=== PATIENT | male | born 1945 | race Caucasian/White ===

== ENCOUNTER 2023-05-31 19:51 | Observation (INO) | payer MEDICARE, OTHER ==
[2023-05-31] MEDS ORDERED: SODIUM CHLORIDE 0.9% 500 ML 500 ML IV ONE (20:40)
--- NOTE | 2023-05-31 20:49 | ED ---
General Adult HPI - General Chief complaint: Neuro Symptoms/Deficit Stated complaint: Poss Stroke Time Seen by Provider: 05/31/23 20:34 Source: patient, RN notes reviewed, old records reviewed Mode of arrival: ambulatory Limitations: no limitations - History of Present Illness Initial comments: 78-year-old male presents for evaluation of dizziness, confusion. Patient has previous history of CVA which had similar symptoms several years ago. Patient s tates that around 4 PM he developed dizziness and confusion lasting approximately one hour. He was in [place] at the time and had drove to the [facility] for care. He lives in [facility]. Paramedics had evaluated him in [place] where he was when the symptoms began and he was noted to be hyp ertensive. He states he is not typically hypertensive. He denies any complaints time my evaluation also symptoms have resolved. He is on 81 mg aspirin. - Related Data Home Medications Medication Instructions Recorded Confirmed Aspirin EC [Ecotrin Low Dose] 81 mg PO DAILY 05/31/23 05/31/23 Lutein 20 mg PO DAILY 05/31/23 05/31/23 Metoprolol Succinate [Toprol XL] 50 mg PO DAILY 05/31/23 05/31/23 Mv-Min/Folic/K1/Lycopen/Lutein 1 tab PO DAILY 05/31/23 05/31/23 [Centrum Silver Men Tablet] Pantoprazole [Protonix] 40 mg PO AC-BRKFST 05/31/23 05/31/23 Pyridoxine [Vitamin B-6] 25 mg PO DAILY 05/31/23 05/31/23 Rosuvastatin Calcium 5 mg PO HS 05/31/23 05/31/23 Ubidecarenone [Coenzyme Q10] 200 mg PO DAILY 05/31/23 05/31/23 Allergies Allergy/AdvReac Type Severity Reaction Status Date / Time No Known Allergies Allergy Verified 05/31/23 21:13 Review of Systems ROS Statement: Those systems with pertinent positive or pertinent negative responses have been documented in the HPI. ROS Other: All systems not noted in ROS Statement are negative. Past Medical History Past Medical History: CVA/TIA, Hypertension History of Any Multi-Drug Resistant Organisms: None Reported Past Surgical History: Heart Catheterization With Stent, Orthopedic Surgery Past Psychological History: No Psychological Hx Reported Smoking Status: Former smoker Past Alcohol Use History: Rare General Exam Limitations: no limitations General appearance: alert, in no apparent distress Head exam: Present: atraumatic, normocephalic Eye exam: Present: normal appearance, PERRL ENT exam: Present: normal exam Neck exam: Present: normal inspection. Absent: tenderness, meningismus Respiratory exam: Present: normal lung sounds bilaterally. Absent: respiratory distress, wheezes Cardiovascular Exam: Present: regular rate, normal rhythm GI/Abdominal exam: Present: soft. Absent: distended, tenderness, guarding Extremities exam: Present: normal inspection, normal capillary refill Neurological exam: Present: alert, oriented X3, CN II-XII intact. Absent: motor sensory deficit (NIH of 0, no limb ataxia, strength 5 out of 5 throughout) Psychiatric exam: Present: normal affect, normal mood Skin exam: Present: warm, dry, intact Course Vital Signs 05/31/23 19:54 Temperature 97.5 F L Pulse Rate 67 Respiratory 18 Rate Blood Pressure 165/90 O2 Sat by Pulse 99 Oximetry Medical Decision Making - Medical Decision Making Was pt. sent in by a medical professional or institution (, PA, JIGGER OPERATOR, urgent care, hospital, or prison...) When possible be specific @ -No Did you speak to anyone other than the patient for history (EMS, parent, family, police, friend...)? What history was obtained from this source @ -No Did you review nursing and triage notes (agree or disagree)? Why? @ -I reviewed and agree with nursing and triage notes Were old charts reviewed (outside hosp., previous admission, EMS record, old EK G, old radiological studies, urgent care reports/EKG's, prison records)? Report findings @ -No old charts were reviewed Differential Diagnosis (chest pain, altered mental status, abdominal pain women, abdominal pain men, vaginal bleeding, weakness, fever, dyspnea, syncope, headache, dizziness, GI bleed, back pain, seizure, CVA, palpatations, mental health, musculoskeletal)? @ Differential CVA Ischemic stroke, hemorrhagic stroke, brain tumor, atypical migraine, Wernicke's encephalopathy, seizure, multiple sclerosis, meningitis, encephalitis, hypoglycemia, Guillain-Mendenhall, electrolytes disturbance, myasthenia gravis.... This is not meant to be an all-inclusive list EKG interpreted by me (3pts min.). @ -Sinus rhythm rate of 62, WA interval 192, QRS duration 89, QTC [address] segment elevation, T-wave inversion in lead 3 X-rays interpreted by me (1pt min.). @ -None done CT interpreted by me (1pt min.). @ -CT brain negative for intracranial hemorrhage, showing prior encephalomalacia from his previous CVA U/S interpreted by me (1pt. min.). @ -None done What testing was considered but not performed or refused? (CT, X-rays, U/S, labs)? Why? @ -None What meds were considered but not given or refused? Why? @ -None Did you discuss the management of the patient with other professionals (professionals i.e. DrMaurisio, PA, JIGGER OPERATOR, lab, RT, psych nurse, social science teacher, sexual assault social worker, teacher, community services officer, manager rn case)? Give summary @ -No Was smoking cessation discussed for >3mins.? @ -No Was critical care preformed (if so, how long)? @ -No Were there social determinants of health that impacted care today? How? (Homelessness, low income, unemployed, alcoholism, drug addiction, transportation, low edu. Level, literacy, decrease access to med. care, halfway, rehab)? @ Dr Silver Was there de-escalation of care discussed even if they declined (Discuss DNR or withdrawal of care, Hospice)? DNR status @ -No What co-morbidities impacted this encounter? (DM, HTN, Smoking, COPD, CAD, Cancer, CVA, ARF, Chemo, Hep., AIDS, mental health diagnosis, sleep apnea, morbid obesity)? @ -[CVA Was patient admitted / discharged? Hospital course, mention meds given and route, prescriptions, significant lab abnormalities, going to OR and other pertinent info. @ -70-year-old male presenting for evaluation of an episode of confusion, dizziness, similar to prior CVA. Symptoms resolved prior to arrival they lasted approximately 60 minutes and began at 4 PM. Patient not a TPA candidate due to results symptoms and onset. Patient remains asymptomatic on emergency department. He is given a full-strength aspirin after head CT is negative for intracranial hemorrhage. He will be admitted for TIA, further evaluation with neurology consultation. Undiagnosed new problem with uncertain prognosis? @ -No Drug Therapy requiring intensive monitoring for toxicity (Heparin, Nitro, Insulin, Cardizem)? @ -No Were any procedures done? @ -No Diagnosis/symptom? @ -[TIA Acute, or Chronic, or Acute on Chronic? @ -[acute Uncomplicated (without systemic symptoms) or Complicated (systemic symptoms)? @ -default Side effects of treatment? @ -No Exacerbation, Progression, or Severe Exacerbation? @ -No Poses a threat to life or bodily function? How? (Chest pain, [place], [place], pneumonia, PE, COPD, DKA, ARF, appy, cholecystitis, CVA, Diverticulitis, Homicidal, Suicidal, threat to staff... and all critical care pts) @ -[yes, cva - Lab Data Result diagrams: 05/31/23 21:19 05/31/23 21:19 Lab Results 05/31/23 05/31/23 05/31/23 Range/Units 21:19 21: 21: WBC 6.6 (3.8-10.6) k/uL RBC 4.04 L (4.30-5.90) m/uL Hgb 12.8 L (13.0-17.5) gm/dL Hct 38.1 L (39.0-53.0) % MCV 94.4 (80.0-100.0) fL MCH 31.7 (25.0-35.0) pg MCHC 33.6 (31.0-37.0) g/dL RDW 12.4 (11.5-15.5) % Plt Count 219 (150-450) k/uL MPV 8.5 Neutrophils % 74 % Lymphocytes % 16 % Monocytes % 5 % Eosinophils % 3 % Basophils % 0 % Neutrophils # 4.9 (1.3-7.7) k/uL Lymphocytes # 1.1 (1.0-4.8) k/uL Monocytes # 0.4 (0-1.0) k/uL Eosinophils # 0.2 (0-0.7) k/uL Basophils # 0.0 (0-0.2) k/uL PT 10.6 (10.0-12.5) sec INR 1.0 (<1.2) APTT 26.1 (22.0-30.0) sec Sodium 137 (137-145) mmol/L Potassium 3.9 (3.5-5.1) mmol/L Chloride 103 (98-107) mmol/L Carbon Dioxide 25 (22-30) mmol/L Anion Gap 9 mmol/L BUN 22 H (9-20) mg/dL Creatinine 1.17 (0.66-1.25) mg/dL Est GFR (CKD-EPI)AfAm 69 (>60 ml/min/1.73 sqM) Est GFR (CKD-EPI)NonAf 59 (>60 ml/min/1.73 sqM) Glucose 80 (74-99) mg/dL Calcium 9.6 (8.4-10.2) mg/dL Total Bilirubin 0.6 (0.2-1.3) mg/dL AST 45 (17-59) U/L ALT 33 (4-49) U/L Alkaline Phosphatase 62 (38-126) U/L Creatine Kinase 231 H (55-170) U/L Troponin I (0.000-0.034) ng/mL Total Protein 7.4 (6.3-8.2) g/dL Albumin 4.6 (3.5-5.0) g/dL 05/31/23 Range/Units 21:19 WBC (3.8-10.6) k/uL RBC (4.30-5.90) m/uL Hgb (13.0-17.5) gm/dL Hct (39.0-53.0) % MCV (80.0-100.0) fL MCH (25.0-35.0) pg MCHC (31.0-37.0) g/dL RDW (11.5-15.5) % Plt Count (150-450) k/uL MPV Neutrophils % % Lymphocytes % % Monocytes % % Eosinophils % % Basophils % % Neutrophils # (1.3-7.7) k/uL Lymphocytes # (1.0-4.8) k/uL Monocytes # (0-1.0) k/uL Eosinophils # (0-0.7) k/uL Basophils # (0-0.2) k/uL PT (10.0-12.5) sec INR (<1.2) APTT (22.0-30.0) sec Sodium (137-145) mmol/L Potassium (3.5-5.1) mmol/L Chloride (98-107) mmol/L Carbon Dioxide (22-30) mmol/L Anion Gap mmol/L BUN (9-20) mg/dL Creatinine (0.66-1.25) mg/dL Est GFR (CKD-EPI)AfAm (>60 ml/min/1.73 sqM) Est GFR (CKD-EPI)NonAf (>60 ml/min/1.73 sqM) Glucose (74-99) mg/dL Calcium (8.4-10.2) mg/dL Total Bilirubin (0.2-1.3) mg/dL AST (17-59) U/L ALT (4-49) U/L Alkaline Phosphatase (38-126) U/L Creatine Kinase (55-170) U/L Troponin I <0.012 (0.000-0.034) ng/mL Total Protein (6.3-8.2) g/dL Albumin (3.5-5.0) g/dL Disposition Clinical Impression: Transient cerebral ischemia Disposition: ADMITTED IP TO THIS HOSP Condition: Stable Is patient prescribed a controlled substance at d/c from ED?: No Referrals: Nonstaff,Physician [Primary Care Provider] - 1-2 days Time of Disposition: 22:19
--- NOTE | 2023-05-31 21:26 | CT ---
EXAMINATION TYPE: CT brain wo con DATE OF EXAM: 05/31/2023 HISTORY: weakness CT DLP: 1163.9 mGycm. Automated Exposure Control for Dose Reduction was Utilized. TECHNIQUE: CT scan of the head is performed without contrast. COMPARISON: None. FINDINGS: There is no acute intracranial hemorrhage or midline shift. There is focal encephalomalacia in the left parietal occipital position consistent with remote infarction. There is no definite acut e attenuation defect. There is no extra-axial fluid collection. The globes are intact. The paranasal sinuses, middle ear cavities, and mastoid sinus air cells are cl ear. The calvarium is unremarkable IMPRESSION: No acute process.
[2023-05-31 21:40] LABS: Basophils % (A) 0 %; Eosinophils # (A) 0.2 k/uL (0-0.7); Eosinophils % (A) 3 %; HCT 38.1 % (39.0-53.0); HGB 12.8 gm/dL (13.0-17.5); Lymphocytes # (A) 1.1 k/uL (1.0-4.8); Lymphocytes % (A) 16 %; MCH 31.7 pg (25.0-35.0); MCHC 33.6 g/dL (31.0-37.0); MCV 94.4 fL (80.0-100.0); Mean Platelet Volume 8.5; Monocytes # (A) 0.4 k/uL (0-1.0); Monocytes % (A) 5 %; Neutrophils # (A) 4.9 k/uL (1.3-7.7); Neutrophils % (A) 74 %; Platelet Count 219 k/uL (150-450); RBC 4.04 m/uL (4.30-5.90); RDW 12.4 % (11.5-15.5); WBC 6.6 k/uL (3.8-10.6)
[2023-05-31] MEDS ORDERED: ASPIRIN 325 MG TAB PO STA (21:50)
[2023-05-31 21:54] LABS: ALT 33 U/L (4-49); AST 45 U/L (17-59); African American GFR (CKD) 69 (>60 ml/min/1.73 sqM); Albumin 4.6 g/dL (3.5-5.0); Alkaline Phosphatase 62 U/L (38-126); Anion Gap 9 mmol/L; Blood Urea Nitrogen 22 mg/dL (9-20); Calcium 9.6 mg/dL (8.4-10.2); Carbon Dioxide 25 mmol/L (22-30); Chloride 103 mmol/L (98-107); Creatine Kinase 231 U/L (55-170); Glucose 80 mg/dL (74-99); Non-African American GFR(CKD) 59 (>60 ml/min/1.73 sqM); Potassium 3.9 mmol/L (3.5-5.1); Sodium 137 mmol/L (137-145); Total Bilirubin 0.6 mg/dL (0.2-1.3); Total Protein 7.4 g/dL (6.3-8.2)
[2023-05-31 21:56] LABS: Partial Thromboplastin Time 26.1 sec (22.0-30.0); Prothrombin Time 10.6 sec (10.0-12.5)
[2023-05-31] MEDS: SODIUM CHLORIDE 0.9% 1,000 ML IV SCH (22:27)
[2023-06-01] MEDS ORDERED: ATORVASTATIN 80 MG TAB PO STA (03:43)
--- NOTE | 2023-06-01 03:44 | P.HPIM ---
History of Present Illness H&P Date: 06/01/23 Patient is a 78-year-old male with a PMH of CVA with no residual deficits and hyperlipidemia who presented to the emergency room with complaints of dizziness and aphasia. Reports he was at his usual state of health at home until about 4 PM earlier today when he suddenly developed lightheadedness and word finding difficulty. He was unable to formulate a sentence as per his and couldn't stand up due to ongoing lightheadedness. Denied weakness, numbness, visual impairments, facial asymmetry, headaches, or loss of consciousness. Symptoms lasted roughly 45 minutes. Upon EMS arrival, the patient no longer had his symptoms but was noted to have an elevated blood pressure of 190s systolic, which is very unusual for him as per the . He reports feeling at his baseline at the time of interview and had no active complaints. CT brain in the emergency room was unremarkable. EKG revealed sinus rhythm at [address]/T-wave changes as reviewed by me. Laboratory evaluation was remarkable for hemoglobin 12.8, troponin less than 0.012, BUN 22, creatinine 1.17. ED documentation reviewed and case discussed with ED provider. Review of systems: Pertinent positives and negatives as discussed in HPI, a complete review of systems was performed and all other systems are negative. Physical examination: Vital signs reviewed General: non toxic, no distress, appears at stated age, overweight Derm: no unusual rashes/lesions, warm Head: atraumatic, normocephalic, symmetric Eyes: EOMI, no lid lag, anicteric sclera, pupils equal round reactive to light ENT: Nose and ears atraumatic Neck: No cervical lymphadenopathy, trachea midline, supple Mouth: no lip lesion, mucus membranes moist Cardiovascular: S1S2 reg, no murmur, positive dorsalis pedis pulse bilateral, no edema Lungs: CTA bilateral, no rhonchi, no rales, no accessory muscle use Abdominal: soft, nontender to palpation, no guarding Ext: muscle strength 5 out of 5 in all 4 extremities grossly, no gross muscle atrophy, no contractures, Neuro: CN II-XI grossly intact, no gross focal neuro deficits Psych: Alert, oriented, appropriate affect Assessment: Aphasia and lightheadedness, suspected TIA Chronic conditions: Hyperlipidemia Imaging: CT brain in the emergency room was unremarkable. EKG revealed sinus rhythm at [address]/T-wave changes as reviewed by me. Data Review: Laboratory evaluation was remarkable for hemoglobin 12.8, troponin less than 0.012, BUN 22, creatinine 1.17. Plan: Cardiac monitoring Neurology consult Echocardiogram Continue with aspirin, statin PT and speech consult Brain MRI Continuing home meds Permissive hypertension DVT prophylaxis: Lovenox Subq The patient is admitted with an anticipated less than 2 midnight stay for evaluation of TIA CODE STATUS: Full Code Discussed with: Patient Anticipated discharge place: Home Past Medical History Past Medical History: CVA/TIA, Hypertension History of Any Multi-Drug Resistant Organisms: None Reported Past Surgical History: Heart Catheterization With Stent, Orthopedic Surgery Past Psychological History: No Psychological Hx Reported Smoking Status: Former smoker Past Alcohol Use History: Rare Medications and Allergies Home Medications Medication Instructions Recorded Confirmed Type Aspirin EC [Ecotrin Low Dose] 81 mg PO DAILY 05/31/23 05/31/23 History Lutein 20 mg PO DAILY 05/31/23 05/31/23 History Metoprolol Succinate [Toprol XL] 50 mg PO DAILY 05/31/23 05/31/23 History Mv-Min/Folic/K1/Lycopen/Lutein 1 tab PO DAILY 05/31/23 05/31/23 History [Centrum Silver Men Tablet] Pantoprazole [Protonix] 40 mg PO AC-BRKFST 05/31/23 05/31/23 History Pyridoxine [Vitamin B-6] 25 mg PO DAILY 05/31/23 05/31/23 History Rosuvastatin Calcium 5 mg PO HS 05/31/23 05/31/23 History Ubidecarenone [Coenzyme Q10] 200 mg PO DAILY 05/31/23 05/31/23 History Allergies Allergy/AdvReac Type Severity Reaction Status Date / Time No Known Allergies Allergy Verified 05/31/23 21:13 Physical Exam Vitals: Vital Signs Temp Pulse Pulse Resp BP BP Pulse Ox 06/01/23 02:00 66 12 06/01/23 00:00 97.8 F 66 12 174/95 98 05/31/23 22:09 64 18 161/94 99 05/31/23 21:39 68 18 166/91 99 05/31/23 21:24 64 18 167/97 97 05/31/23 21:09 63 18 161/111 99 05/31/23 20:39 60 18 187/101 99 05/31/23 19:54 97.5 F L 67 18 165/90 99 Intake and Output 05/31/23 05/31/23 06/01/23 14:59 22:59 06:59 Other: Voiding Method Urinal Weight 81.647 kg Results CBC & Chem 7: 05/31/23 21:19 05/31/23 21:19 Labs: Abnormal Lab Results - Last 24 Hours (Table) 05/31/23 05/31/23 Range/Units 21:19 21:19 RBC 4.04 L (4.30-5.90) m/uL Hgb 12.8 L (13.0-17.5) gm/dL Hct 38.1 L (39.0-53.0) % BUN 22 H (9-20) mg/dL Creatine Kinase 231 H (55-170) U/L
[2023-06-01] MEDS: ENOXAPARIN 40 MG/0.4 ML SYRINGE SQ SCH (08:39)
[2023-06-01] MEDS: PANTOPRAZOLE 40 MG TABLET PO SCH (08:39)
[2023-06-01] MEDS: METOPROLOL SUCCINATE (ER) 50 MG TAB.ER.24H PO SCH (08:39)
[2023-06-01] MEDS: SODIUM CHLORIDE 0.9% 1,000 ML IV SCH ×3 (08:39→23:56)
[2023-06-01 08:59] LABS: Chol/HDL Ratio 2.62 Ratio; LDL Cholesterol,Calculated 75.9 mg/dL (0.0-131.0)
[2023-06-01] MEDS ORDERED: ASPIRIN 325 MG TAB PO SCH (09:00)
--- NOTE | 2023-06-01 12:36 | CA ---
Transthoracic Echo Report Name: Niko Rojas Age: 78 Gender: M : 1945 Exam Date: 06/01/2023 09:54 Exam Location: [facility] Ht (in): 68 Wt (lb): 180 Ordering Physician: Griffin Silver MD Attending/Referring Phys: Track Watchman Kareen Rae [facility] Procedure CPT: Indications: CVA Cardiac Hx: Technical Quality: Fair Contrast 1: Total Dose (mL): Contrast 2: Total Dose (mL): MEASUREMENTS (Male / Female) Normal Values 2D ECHO LV Diastolic Diameter PLAX 4.2 cm 4.2 - 5.9 / 3.9 - 5.3 cm LV Systolic Diameter PLAX 2.8 cm IVS Diastolic Thickness 1.1 cm 0.6 - 1.0 / 0.6 - 0.9 cm LVPW Diastolic Thickness 1.1 cm 0.6 - 1.0 / 0.6 - 0.9 cm LV Relative Wall Thickness 0.5 LVOT Diameter 2.0 cm Ascending Aorta Diameter 3.4 cm M-MODE Aortic Root Diameter MM 2.8 cm LA Systolic Diameter MM 3.9 cm LA Ao Ratio MM 1.4 AV Cusp Separation MM 1.7 cm DOPPLER AV Peak Velocity 129.7 cm/s AV Peak Gradient 6.7 mmHg AV Mean Velocity 103.1 cm/s AV Mean Gradient 4.5 mmHg AV Velocity Time Integral 31.9 cm AI Peak Velocity 427.4 cm/s AI Peak Gradient 73.1 mmHg AI Pressure Half Time 802.8 ms LVOT Peak Velocity 139.9 cm/s LVOT Peak Gradient 7.8 mmHg LVOT Velocity Time Integral 31.5 cm LVOT Stroke Volume 101.8 cm??? LVOT Stroke Volume Index 52.1 ml/m??? LVOT Cardiac Index 3469.7 cm???/min???m??? AV Area Cont Eq vti 3.2 cm??? AV Area Cont Eq pk 3.5 cm??? Mitral E Point Velocity 68.3 cm/s Mitral A Point Velocity 85.6 cm/s Mitral E to A Ratio 0.8 MV Deceleration Time 226.9 ms LV E' Lateral Velocity 8.4 cm/s Mitral E to LV E' Lateral Ratio 8.1 LV E' Septal Velocity 7.2 cm/s Mitral E to LV E' Septal Ratio 9.5 TR Peak Velocity 233.4 cm/s TR Peak Gradient 21.8 mmHg Right Atrial Pressure 3.0 mmHg Pulmonary Artery Systolic Pressu 24.8 mmHg Right Ventricular Systolic Press 24.8 mmHg FINDINGS Left Ventricle Mildly increased left ventricular wall thickness. Left ventricular cavity size normal. Normal left ventricular systolic function with no obvious regional wall motion abnormalities. Left ventricular ejection fraction is estimated at 60- 65%. Right Ventricle Normal right ventricular size. Right Atrium Normal right atrial size. Left Atrium Normal left atrial size. Mitral Valve Structurally normal mitral valve. Mild mitral regurgitation. Aortic Valve Trileaflet aortic valve. mild aortic regurgitation. Tricuspid Valve Structurally normal tricuspid valve. Mild tricuspid regurgitation. Pulmonic Valve Pulmonic valve not well visualized. Pericardium No pericardial effusion. Aorta Normal size aortic root and proximal ascending aorta. CONCLUSIONS 1. Normal left ventricle size and systolic function 2. Mild mitral, aortic and tricuspid regurgitation with no evidence of pulmonary hypertension Previewed by: Dr. Zack Palm MD (Electronically Signed) Final Date: 01 June 2023 12:35
--- NOTE | 2023-06-01 13:26 | P.CNNES ---
History of Present Illness Consult date: 06/01/23 Requesting physician: Ian Garsia Reason for Consult: tia History of Present Illness: This is a 78-year-old gentleman with history of stroke in 2019, hypertension, hypercholesterolemia who presented emergency department because of dizziness and confusion. Patient is accompanied with his . His symptoms transpired at 4 PM yesterday and lasted about 45 minutes. Vision stated that the he had some difficulty getting his words out and he knew what he wanted to say. Per the and he seemed somewhat confused. He felt that he was in a fog and he was dizzy. He denies any focal weakness, visual disturbance, any nausea any vomiting. He did have a stroke in 2019 which affected the vision over both bilateral right side. Patient is taking aspirin 81 mg daily. He has a loop recorder on. He denies of any A. fib that he is aware of. Denies any history of seizures. Some of the workup during his hospital visit consisted of: Patient is afebrile. Sodium, calcium, creatinine and glucose are within normal limits Ammonia is less than 9 White blood cell is within normal limits. He Lipid panel is triglycerides 118, cholesterol is 161, LDL 75 and HDL is 61. CT of the head is reported as no acute process. I personally reviewed the CT of the head and the patient has an old left occipital stroke 2D echo was reported as normal left ventricular size and systolic function. Mild monitor aortic and tricuspid regurgitation with no evidence of pulmonary hypertension. Review of Systems Review of system: The 12 point system was reviewed and apparent positive and n egative per HPI. Past Medical History Past Medical History: CVA/TIA, Hypertension Additional Past Medical History / Comment(s): CVA/TIA residual memory loss, partial vision loss, and garbled speach Last Myocardial Infarction Date:: N/A History of Any Multi-Drug Resistant Organisms: None Reported Past Surgical History: Heart Catheterization With Stent, Orthopedic Surgery Past Anesthesia/Blood Transfusion Reactions: No Reported Reaction Date of Last Stent Placement:: N/A Past Psychological History: No Psychological Hx Reported Smoking Status: Former smoker Past Alcohol Use History: Rare Medications and Allergies Home Medications Medication Instructions Recorded Confirmed Type Aspirin EC [Ecotrin Low Dose] 81 mg PO DAILY 05/31/23 05/31/23 History Lutein 20 mg PO DAILY 05/31/23 05/31/23 History Metoprolol Succinate [Toprol XL] 50 mg PO DAILY 05/31/23 05/31/23 History Mv-Min/Folic/K1/Lycopen/Lutein 1 tab PO DAILY 05/31/23 05/31/23 History [Centrum Silver Men Tablet] Pantoprazole [Protonix] 40 mg PO AC-BRKFST 05/31/23 05/31/23 History Pyridoxine [Vitamin B-6] 25 mg PO DAILY 05/31/23 05/31/23 History Rosuvastatin Calcium 5 mg PO HS 05/31/23 05/31/23 History Ubidecarenone [Coenzyme Q10] 200 mg PO DAILY 05/31/23 05/31/23 History Allergies Allergy/AdvReac Type Severity Reaction Status Date / Time No Known Allergies Allergy Verified 05/31/23 21:13 Physical Examination - Vital Signs Vital Signs: Vital Signs Temp Pulse Pulse Resp BP BP Pulse Ox 06/01/23 08:00 64 15 06/01/23 06:39 98.4 F 64 15 136/95 99 06/01/23 02:00 98.6 F 60 15 142/84 94 L 06/01/23 00:00 97.8 F 66 12 174/95 98 05/31/23 22:09 64 18 161/94 99 05/31/23 21:39 68 18 166/91 99 05/31/23 21:24 64 18 167/97 97 05/31/23 21:09 63 18 161/111 99 05/31/23 20:39 60 18 187/101 99 05/31/23 19:54 97.5 F L 67 18 165/90 99 Intake and Output 05/31/23 06/01/23 06/01/23 22:59 06:59 14:59 Intake Total 700 118 Output Total 300 Balance 400 118 Intake: IV 700 Sodium Chloride 0.9% 1, 700 000 ml @ 100 mls/hr IV . Q10H [facility] Rx#:[id number] Oral 118 Output: Urine 300 Other: Voiding Method Urinal Toilet Urinal # Voids 1 Weight 81.647 kg 81.647 kg GENERAL: The patient is lying in bed and is not in acute distress. NEUROLOGICAL: Higher mental function: The patient is awake, alert, oriented to self, place and time. Patient is following commands. No aphasia and no neglect. Cranial nerves: The pupils are round, equal and reactive to light and accommodation. Visual osorio are right homonymous hemianposia. Extraocular movement is intact no nystagmus is noted. Facial sensation is normal to touch throughout. The facial strength is normal throughout. Hearing is normal bilaterally to hand rub. Tongue is midline and moved [id number] without any difficulty. No dysarthria is noted. Shoulder shrug is normal bilaterally. Motor: Gait is normal. The strength is 5 over 5 throughout. Normal tone and bulk. Cerebellum: Normal finger to nose bilaterally. Sensation: Sensation is normal to touch throughout. Reflexes (right/left): 2+ throughout. Plantars are downgoing bilaterally. Results - Laboratory Findings CBC and BMP: 05/31/23 21:19 05/31/23 21:19 Abnormal Lab Findings: Abnormal Labs 05/31/23 05/31/23 05/31/23 21:19 21:19 21:19 RBC 4.04 L Hgb 12.8 L Hct 38.1 L BUN 22 H Creatine Kinase 231 H HDL Cholesterol 61.50 H Assessment and Plan Assessment: This is a 78-year-old gentleman with history of stroke in 2019 over [facility] with residual right homonymous hemianopsia who presents to the hospital because of episode of dizziness and confusion and some speech difficulty on 05/31/2023 which lasted about 45 minutes and the episode happened around 4 PM. Currently the patient is back to baseline. Transient Episode of confusion, dizziness with some speech difficulty possible TIA. Cannot rule out possible seizure especially with hx of stroke which can be focus for seizure. History of left occipital stroke in 2019 with residual right homonymous hemianopsia Loop recorder Plan: MR the brain is ordered by the ED team In addition I ordered MRA of the head and neck appeared I also ordered routine EEG. I ordered TSH, vitamin B12, folate Patient home dose of aspirin was increased from 81-325 daily by the ED team. And the patient was started by the primary team on Lipitor 80 mg Recommend interrogation of his loop recorder Continue neuro checks Cardiac monitoring PT OT and DOUBLE CORNER CUTTER are consulted We'll defer the rest of the medical management to primary team The plan was discussed with the patient, his was at bedside as nurse Thank you for the consultation Time with Patient: Greater than 30
--- NOTE | 2023-06-01 17:56 | P.PN ---
Subjective Progress Note Date: 06/01/23 Hospital course: Patient is a very pleasant 78-year-old male with a past medical history of CVA with no residual deficits, hypertension, hyperlipidemia, and CAD with stent. He presented to the emergency department overnight with complaints of dizziness and aphasia with last known normal on 05/31/23 around 4 PM.. Patient underwent full evaluation in the emergency department. Upon arrival vital signs as follows blood pressure 165/90, heart rate 67, respiratory rate 18, temp 97.5F, SpO2 of 99% on room air. EKG completed showing normal sinus rhythm at 62 bpm with T- wave inversion in inferior lead 3 otherwise no further T-wave or ST abnormalities showing no signs of acute ischemia upon personal review and interpretation. CT brain completed which was negative for acute intercranial process. Labs completed and reviewed. CBC showing normocytic anemia with hemoglobin stable at 12.8. Coagulation profile normal findings. BMP revealing mild prerenal azotemia with BUN of 22 otherwise normal findings. Blood glucose was 80. Creatinine kinase was elevated at 231. Troponin negative at less than 0.012. TSH normal findings at 1.020. Patient admitted under the services with consultation to neurology. Physical exam: Vital signs reviewed and stable. General: Nontoxic, no distress and appears stated age. Derm: Skin warm and dry, normal coloration for ethnicity. Head: Atraumatic, normocephalic and symmetric. Eyes: EOMs intact, no lid lag, and anicteric sclera Mouth: no lip lesions, mucus membranes moist Cardiovascular: regular rate and rhythm with normal S1S2, no murmur, positive posterior tibial pulses bilaterally, and cap refill < 2 seconds. Lungs: Respirations even, regular, and unlabored on room air. Lungs CTA bilaterally, no rhonchi, no rales, no wheezing, and no accessory muscle usage. Abdominal: soft, nontender to palpation, no guarding, no appreciable organomegaly Ext: ROM intact. No gross muscle atrophy, no edema, no contractures Neuro: Speech clear, face symmetrical and CN II-XII grossly intact with no noted focal neuro deficits Psych: Alert and oriented to person, place, time, and situation. Appropriate and pleasant affect. Assessment and Plan of Care: Transient episode of aphasia and lightheadedness, rule out TIA versus CVA History of CVA with no residual deficits History of CAD status post stenting Hypertension Hyperlipidemia -Neurology consulted, appreciate further recommendations -Continue Telemetry monitoring -Continue NIH stroke scale with neuro checks every 4 hours -Continue aspirin 81 mg daily Aspirin, atorvastatin 80 mg nightly,, and metoprolol 50 mg daily. -Lipid profile unremarkable. -Echocardiogram completed and awaiting results. -MRI and EEG to be completed as recommended by neurologist -Consult placed to speech and language pathologist, physical therapy, and occupational therapy. CODE STATUS: Full code DVT prophylaxis: Lovenox Anticipated discharge date: 24-[address]: Home Patient was seen independently by Nurse Pracitioner. This document was prepared using [employer] dictation software. Please allow for errors in profile saw setup operator, while rare they do occur. Zheng Layne NP rendered care for this patient independently, reviewed the findings and plan as documented in the note above. I did not physically speak with or examine the patient on this date. Objective - Vital Signs Vital signs: Vital Signs Temp 98.4 F 06/01/23 06:39 Pulse 64 06/01/23 06:39 Resp 15 06/01/23 06:39 BP 136/95 06/01/23 06:39 Pulse Ox 99 06/01/23 06:39 FiO2 Intake & Output 05/31/23 06/01/23 06/01/23 18:59 06:59 18:59 Intake Total 700 Output Total 300 Balance 400 Weight 81.647 kg Intake: IV 700 Sodium Chloride 0.9% 1, 700 000 ml @ 100 mls/hr IV . Q10H [facility] Rx#:[id number] Output: Urine 300 Other: Voiding Method Urinal # Voids 1 - Labs CBC & Chem 7: 05/31/23 21:19 05/31/23 21:19 Labs: Abnormal Lab Results - Last 24 Hours (Table) 05/31/23 05/31/23 05/31/23 Range/Units 21:19 21:19 21:19 RBC 4.04 L (4.30-5.90) m/uL Hgb 12.8 L (13.0-17.5) gm/dL Hct 38.1 L (39.0-53.0) % BUN 22 H (9-20) mg/dL Creatine Kinase 231 H (55-170) U/L HDL Cholesterol 61.50 H (40.00-60.00) mg/dL
--- NOTE | 2023-06-01 19:16 | EEG ---
ELECTROENCEPHALOGRAM REPORT CLINICAL HISTORY: This is a 78-year-old gentleman with transient episode of confusion. The video EEG is obtained to evaluate for seizure and epileptiform discharges. RELEVANT MEDICATION: The patient is not on any antiepileptic drug. EEG TYPE: A routine 21-channel EEG with video using the 10/20 electrode placement system is used. DESCRIPTION: Wakefulness and drowsiness are obtained. During awake state, the posterior-dominant rhythm consists of [id number] voltage of 9 Hz activity, that is well modulated and well sustained. There is no physiological stage II sleep architecture. There is no focal slowing. INTERICTAL AND ICTAL: None. ACTIVATION PROCEDURE: Photic stimulation did not evoke a posterior driving response. There is no abnormality during the photic stimulation. Hyperventilation is not performed. CLINICAL INTERPRETATION: This is a normal routine EEG. There is no focal slowing, epileptiform discharge, or seizure on the EEG. A normal routine EEG does not rule out underlying epilepsy. Clinical correlation is recommended. MMANGELICA / LEENAN: [id number] /
[2023-06-01] MEDS ORDERED: ATORVASTATIN 80 MG TAB PO SCH (21:00)
[2023-06-02] MEDS: PANTOPRAZOLE 40 MG TABLET PO SCH (06:47)
[2023-06-02 07:50] VITALS: BP 163/89; PULSE 63; RESP 18; TEMP 97.6
[2023-06-02] MEDS ORDERED: ASPIRIN 81 MG PO SCH (09:00)
[2023-06-02] MEDS: METOPROLOL SUCCINATE (ER) 50 MG TAB.ER.24H PO SCH (10:03)
[2023-06-02] MEDS: ENOXAPARIN 40 MG/0.4 ML SYRINGE SQ SCH (11:12)
--- NOTE | 2023-06-02 13:21 | P.PN ---
Subjective Progress Note Date: 06/02/23 I am follow-up with the patient and he feels he is back to baseline. He is walking in the hallway and the denies of any neurological issues at. Pending MRI the brain. Objective - Vital Signs Vital signs: Vital Signs Temp 97.6 F 06/02/23 07:00 Pulse 63 06/02/23 07:00 Resp 18 06/02/23 07:00 BP 163/89 06/02/23 07:00 Pulse Ox 100 06/02/23 07:00 FiO2 Intake & Output 06/01/23 06/02/23 06/02/23 18:59 06:59 18:59 Intake Total 236 120 Balance 236 120 Intake: Oral 236 120 Other: Voiding Method Toilet Urinal # Voids 3 2 - Exam GENERAL: The patient is lying in bed and is not in acute distress. NEUROLOGICAL: Higher mental function: The patient is awake, alert, oriented to self, place and time. Patient is following commands. No aphasia and no neglect. Cranial nerves: The pupils are round, equal and reactive to light and a ccommodation. Visual osorio are right homonymous hemianposia. Extraocular movement is intact no nystagmus is noted. Facial sensation is normal to touch throughout. The facial strength is normal throughout. Hearing is normal bilaterally to hand rub. Tongue is midline and moved [id number] without any difficulty. No dysarthria is noted. Shoulder shrug is normal bilaterally. Motor: Gait is normal. The strength is 5 over 5 throughout. Normal tone and bulk. Cerebellum: Normal finger to nose bilaterally. Sensation: Sensation is normal to touch throughout. Reflexes (right/left): 2+ throughout. Plantars are downgoing bilaterally. Some of the workup during his hospital visit consisted of: Patient is afebrile. Sodium, calcium, creatinine and glucose are within normal limits White blood cell is within normal limits. TSH is 1.020 Vitamin B12 is 591 Serum folate is 40 Ammonia is less than 9 Lipid panel is triglycerides 118, cholesterol is 161, LDL 75 and HDL is 61. CT of the head is reported as no acute process. I personally reviewed the CT of the head and the patient has an old left occipital stroke 2D echo was reported as normal left ventricular size and systolic function. Mild monitor aortic and tricuspid regurgitation with no evidence of pulmonary hypertension. Routine EEG is normal. - Labs CBC & Chem 7: 05/31/23 21:19 05/31/23 21:19 Labs: Abnormal Lab Results - Last 24 Hours (Table) 06/01/23 Range/Units 10:49 Folate 40.00 H (4.40-31.00) ng/mL Assessment and Plan Assessment: This is a 78-year-old gentleman with history of stroke in 2019 over left hospital with residual right homonymous hemianopsia who presents to the hospital because of episode of dizziness and confusion and some speech difficulty on 05/31/2023 which lasted about 45 minutes and the episode happened around 4 PM. Currently the patient is back to baseline. Transient Episode of confusion, dizziness with some speech difficulty possible TIA. Cannot rule out possible seizure especially with hx of stroke which can be focus for seizure. History of left occipital stroke in 2019 with residual right homonymous hemianopsia Loop recorder Plan: MR the brain is ordered by the ED team In addition I ordered MRA of the head and neck Patient home dose of aspirin was increased from 81-325 daily by the ED team. And the patient was started by the primary team on Lipitor 80 mg Recommend interrogation of his loop recorder Continue neuro checks Cardiac monitoring PT OT and SLAGGER are consulted We'll defer the rest of the medical management to primary team The plan was discussed with the patient and his nurse If MRI of the brain is negative for any acute or subacute stroke or any lesion then that the patient is clear from a neurologic perspective. Time with Patient: Less than 30
--- NOTE | 2023-06-02 14:56 | MR ---
EXAMINATION TYPE: MR brain wo con DATE OF EXAM: 06/02/2023 2:45 PM CLINICAL INDICATION:Male, 78 years old with history of Neuro deficit, acute, stroke suspected; Renata SAGE, stroke COMPARISON: CT 05/31/2023. TECHNIQUE: Multi planar, multi sequence imaging was performed through the brain including: T1, T2, In version recovery, Diffusion weighted imaging, and gradient echo imaging. No gadolinium was given. FINDINGS: Ventricular dilation proportion to cerebral atrophy. Encephalomalacia of the left occipital lobe from prior injury. Blooming artifact in the gyriform pattern along the area of prior injury. The vuong-whi te junctions, ventricular system, and cisterns appear unremarkable. Scattered foci of high T2 signal intensity are seen within the periventricular white matter. Midline structures show no abnormality. Diffusion-weighted imaging shows no evidence of restricted diffusion. The susceptibility weighted izabela ges do not reveal any evidence for micro-hemorrhage. The bone marrow signal is within normal limits. Paranasal sinuses and mastoid air cells: No significant paranasal sinus disease. Visualized orbits: Orbital contents are intact. IMPRESSION: 1. No evidence of intracranial mass or acute/subacute infarct. 2. Nonspecific white matter changes, likely secondary to small vessel ischemic disease. 3. Prior injury to the left occipital lobe with encephalomalacia.
--- NOTE | 2023-06-02 16:20 | MR ---
EXAMINATION TYPE: MR angio head wo/neck wo/w con DATE OF EXAM: 06/02/2023 3:30 PM CLINICAL INDICATION:Male, 78 years old with history of stroke. Dizziness, Dizziness, stroke COMPARISON: CT brain 05/31/2023 MRI brain 06/02/2023. Technical: MRA brain: 2D and 3-D [id number] Axial with MIP and 3-D reconstruction. Performed on a separate w orkstation. MRA neck: Multiplanar, multi-sequence imaging as well as [id number] and phase was performed extra cranial vasculature of the neck. 3-D reformatted images and maximum intensity projection reformatted images were submitted for evaluation, these are performed on a separate workstation. IV Contrast: 8.5 cc Gadavist Findings: Vertebral arteries: The vertebral arteries are patent. Vertebral arteries are: Codominant. Basilar artery: The basilar artery is intact. The basilar artery bifurcation is normal. Internal Carotid arteries: The cervical, petrous, cavernous and supraclinoid segments are normal. RODNEY: Patent with no evidence of aneurysm. ACOM: Present without evidence of aneurysm. MCA: Patent with no evidence of aneurysm. ARMATURE COIL WINDER: Patent with no evidence of aneurysm. PCOM: Hypoplastic bilaterally. RIGHT CAROTID SYSTEM: The common carotid artery is patent. The carotid bifurcations demonstrates no e vidence for hemodynamically significant stenosis. The internal carotid artery is patent. LEFT CAROTID SYSTEM: The common carotid artery is patent. The carotid bifurcations demonstrates no e vidence for hemodynamically significant stenosis. The internal carotid artery is patent. The origins of the great vessels and vertebral arteries appear unremarkable. The right vertebral art keith is dominant. IMPRESSION: 1. No evidence of intracranial aneurysm or significant stenosis. 2. No evidence of significant stenosis at the carotid bifurcations. The carotid and vertebral arteri es are patent. 3. No evidence aneurysm.
--- NOTE | 2023-06-02 16:50 | P.DS ---
Providers Date of admission: 05/31/23 22:17 Expected date of discharge: 06/02/23 Attending physician: Griffin Silver MD Consults: 05/31/23 22:18 Consult Physician Routine Consulting Provider: Fady Villa Consult Reason/Comments: TIA, Do you want consulting provider notified?: Yes Primary care physician: Physician Nonstaff Hospital Course: Discharge Diagnosis: Transient episode of aphasia and lightheadedness, likely due to TIA. 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 He presented to the emergency department overnight with complaints of dizziness and aphasia with last known normal on 05/31/23 around 4 PM.. Patient underwent full evaluation in the emergency department. Upon arrival vital signs as follows blood pressure 165/90, heart rate 67, respiratory rate 18, temp 97.5F, SpO2 of 99% on room air. EKG completed showing normal sinus rhythm at 62 bpm with T- wave inversion in inferior lead 3 otherwise no further T-wave or ST abnormalities showing no signs of acute ischemia upon personal review and interpretation. CT brain completed which was negative for acute intercranial process. Labs completed and reviewed. CBC showing normocytic anemia with hemoglobin stable at 12.8. Coagulation profile normal findings. BMP revealing mild prerenal azotemia with BUN of 22 otherwise normal findings. Blood glucose was 80. Creatinine kinase was elevated at 231. Troponin negative at less than 0.012. TSH normal findings at 1.020. Patient admitted under the services with consultation to neurology. Patient reported full resolution of deficits approximately 2-3 hours after arrival to our facility. He underwent tonight hospital stay with full neurological workup. Symptoms did not return and patient remained free from any complaints or concerns. He underwent full evaluation by neurologist. 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 EEG was reported to be a normal routine EEG with no focal slowing, epileptiform discharge, or seizure activity. Echocardiogram completed revealing preserved EF of 60-65% with mild mitral, a ortic, and tricuspid regurgitation. MRA head and neck showing no evidence of intercranial aneurysm or significant stenosis and no evidence of significant stenosis at the carotid bifurcations with patent carotid and vertebral arteries. Discussed with neurologist in detail these results. Neurologist recommending patient be started on Plavix 75 mg daily for 21 days and continue daily aspirin 81 mg for life. Patient is cleared from a neurological perspective recommending outpatient follow-up with neurologist in the next 2 weeks. Medically, patient remains free from any complaints or concerns at this time and is stable for discharge home. Patient will need to follow-up with PCP in the next 3 days and with neurologist in the next couple weeks. Physical exam: Vital signs reviewed and stable. General: Nontoxic, no distress and appears stated age. Derm: Skin warm and dry, normal coloration for ethnicity. Head: Atraumatic, normocephalic and symmetric. Eyes: EOMs intact, no lid lag, and anicteric sclera Mouth: no lip lesions, mucus membranes moist Cardiovascular: regular rate and rhythm with normal S1S2, no murmur, positive posterior tibial pulses bilaterally, and cap refill < 2 seconds. Lungs: Respirations even, regular, and unlabored on room air. Lungs CTA bilaterally, no rhonchi, no rales, no wheezing, and no accessory muscle usage. Abdominal: soft, nontender to palpation, no guarding, no appreciable organomegaly Ext: ROM intact. No gross muscle atrophy, no edema, no contractures Neuro: Speech clear, face symmetrical and CN II-XII grossly intact with no noted focal neuro deficits Psych: Alert and oriented to person, place, time, and situation. Appropriate and pleasant affect. A total of 35 minutes of time were spent preparing this complex discharge summary. Pt was discharged on 06/02/23 at 4:43 PM. Patient was seen independently by Nurse Practitioner. This document was prepared using [employer] dictation software. Please allow for errors in mill supervisor while rare they do occur. Patient Condition at Discharge: Stable Plan - Discharge Summary Discharge Rx Participant: Yes New Discharge Prescriptions: New Clopidogrel [Plavix] 75 mg PO DAILY 21 Days #21 tablet Continue Pyridoxine [Vitamin B-6] 25 mg PO DAILY Ubidecarenone [Coenzyme Q10] 200 mg PO DAILY Mv-Min/Folic/K1/Lycopen/Lutein [Centrum Silver Men Tablet] 1 tab PO DAILY Lutein 20 mg PO DAILY Rosuvastatin Calcium 5 mg PO HS Pantoprazole [Protonix] 40 mg PO AC-BRKFST Aspirin EC [Ecotrin Low Dose] 81 mg PO DAILY Metoprolol Succinate [Toprol XL] 50 mg PO DAILY Discharge Medication List Aspirin EC [Ecotrin Low Dose] 81 mg PO DAILY 05/31/23 [History] Lutein 20 mg PO DAILY 05/31/23 [History] Metoprolol Succinate [Toprol XL] 50 mg PO DAILY 05/31/23 [History] Mv-Min/Folic/K1/Lycopen/Lutein [Centrum Silver Men Tablet] 1 tab PO DAILY 05/31/23 [History] Pantoprazole [Protonix] 40 mg PO AC-BRKFST 05/31/23 [History] Pyridoxine [Vitamin B-6] 25 mg PO DAILY 05/31/23 [History] Rosuvastatin Calcium 5 mg PO HS 05/31/23 [History] Ubidecarenone [Coenzyme Q10] 200 mg PO DAILY 05/31/23 [History] Clopidogrel [Plavix] 75 mg PO DAILY 21 Days #21 tablet 06/02/23 [Rx] Follow up Appointment(s)/Referral(s): George Zavaleta MD [STAFF PHYSICIAN] - 1 Week Yas Vaz MD [REFERRING] - 1 Week Patient Instructions/Handouts: Transient Ischemic Attack (DC) Activity/Diet/Wound Care/Special Instructions: Activity: As tolerated. Take breaks as needed. Diet: Heart healthy and carb consistent diet. Avoid salts, or foods with hidden salts such as canned or boxed foods and frozen dinners. Extra salt makes your heart work harder and traps the fluid in your body for longer. Special Instructions: Take all of your medications as directed and remember to keep all of your doctor's appointments and follow-up as needed. Discussed with neurologist, he is recommending that you take Plavix 75 mg daily for 21 days in addition to aspirin 81 mg daily for life. Recommend following up outpatient with neurologist in the next 1-2 weeks. Thank you for allowing us to participate in your care, it was truly a pleasure having you for our patient!!! Discharge Disposition: HOME SELF-CARE
== END 2023-06-02 17:16 | disposition home or self-care (01) ==
LOC: EC 19:51 → 6NMEDSUR 22:17
PROVIDERS: ADMIT Internal Medicine; ATTEND Internal Medicine
DX: R47.01 Aphasia (principal); R42 Dizziness and giddiness; R47.9 Unspecified speech disturbances; I10 Essential (primary) hypertension; E78.00 Pure hypercholesterolemia, unspecified; I25.10 Atherosclerotic heart disease of native coronary artery without angina pectoris; Z86.73 Personal history of transient ischemic attack (TIA), and cerebral infarction without residual deficits; Z87.891 Personal history of nicotine dependence; Z95.5 Presence of coronary angioplasty implant and graft; Z79.82 Long term (current) use of aspirin; Z79.899 Other long term (current) drug therapy
CPT/HCPCS: 96361 ×3; 96372 ×2; 96360; 99285; 36415; 95816; 93005; 93306; 97161; 92523; 80061; 80053; 84443; 82607; 82140; 82550; 82746; 84484; 85025; 85610; 85730; 70450; 70544; 70549; 70551; G0378 ×3; J1650 ×2; A9585